=== PATIENT | female | born 1980 | race Caucasian/White ===

== ENCOUNTER 2020-12-25 15:25 | Emergency (ER) | payer BC, SELFPAY ==
--- NOTE | ~2020-12-25 | XR_ITS ---
EXAMINATION: XR hand RT min 3V INDICATION: Right hand pain TECHNIQUE: Three views of the right hand are obtained. COMPARISON: None available FINDINGS: There is no fracture, dislocation, or subluxation. The bones, soft tissues, and joint space s are normal. IMPRESSION: 1. No acute osseous abnormality. Reviewed, dictated and finalized at location A.
[2020-12-25 16:28] VITALS: BP 128/87; PULSE 86; RESP 14; TEMP 36.5; O2SAT 99
--- NOTE | 2020-12-25 19:51 | ED.GENADULT ---
HPI - General Adult General Chief complaint: Extremity Injury, Upper Stated complaint: finger injury Time Seen by Provider: 12/25/20 19:00 Source: patient Mode of arrival: ambulatory Limitations: no limitations History of Present Illness HPI narrative: Patient presents for evaluation of pain in the right hand since this morning. She indicates pain started when she got her finger caught on a dish while washing dishes. She states her current pain level is 8 on a scale of 1-10, with levels as high as 11 earlier today. Pain is constant, without descriptive quality. No loss of range of motion. Movement worsens her pain. No paresthesias. She has not taken any medication to assist with her symptoms. She is right-hand dominant. No additional complaints or concerns. Related Data Allergies Allergy/AdvReac Type Severity Reaction Status Date / Time procaine Allergy Unknown FACIAL Verified 02/09/17 21:14 SWELLING Novacaine Allergy Severe Facial Uncoded 04/18/07 20:22 swelling Review of Systems Review of Systems: CONSTITUTIONAL: Denies fever, chills, or sweats. EYES: Denies visual changes, redness, or discharge. ENT: Denies rhinorrhea, congestion, sore throat, or otalgia. CARDIOVASCULAR: Denies chest pain, palpitations, or edema. RESPIRATORY: Denies cough or dyspnea. GASTROINTESTINAL: Denies abdominal pain, nausea, vomiting, or diarrhea. GENITOURINARY: Denies dysuria or hematuria. SKIN: Denies rash or itching. MUSCULOSKELETAL: Reports pain in the fifth digit of the right hand. Denies back pain NEUROLOGIC: Denies headache, numbness, dizziness, or weakness. PSYCHIATRIC: Denies anxiety or depression. [facility] Past Medical History Medical History (Updated 12/25/20 @ 19:58 by FRANKLIN Colón, SARAH) No pertinent past medical history Surgical History Surgical History History of section History of foot surgery History of hysterectomy History of tonsillectomy History of tubal ligation Family History Family History Mother No pertinent past medical history Social History Social History Smoking status: Former smoker Tobacco type: cigarettes Alcohol intake: current Alcohol use details: Occasional social use Substance use: never Living arrangements: with friend(s) Gender identity (if verbalized by the patient): Female Spiritual care concerns: No Exam Narrative: GENERAL: Well-appearing, well-nourished, and in no acute distress. HEAD: Normocephalic, atraumatic. EYES: PERRLA and EOMI. ENT: Nares clear, no rhinorrhea or epistaxis. Mucous membranes moist. Oropharynx without tonsillar hypertrophy exudate or other lesions. Bilateral TMs pearly munson nonbulging NECK: Supple. No adenopathy or masses. No carotid bruits or JVD CHEST: Clear to auscultation. No respiratory distress. No wheezes rales or rhonchi HEART: Regular rate and rhythm. No murmur heard. Normal peripheral pulses. ABDOMEN: Soft, nontender, nondistended, normal active bowel sounds. EXTREMITIES: Tenderness in the DIP and distal phalanx of the fifth digit of the right hand. Normal range of motion. No edema. SKIN: Warm, dry, no rash. NEURO: No focal deficits. Alert and oriented x3. PSYCH: Normal mood and affect. Course Course Emergency Course: This is a 40-year-old female that presented with complaints of pain in the fifth digit of the right hand after she caught it on a dish while washing dishes. X ray was negative for fx. She declined pain medication in the department and upon discharge home. She was provided with a finger splint. Advised RICE therapy. Follow-up outpatient for further evaluation treatment and return for worsening symptoms. Patient agreed with plan of care. Vital Signs Vital signs: Vital Signs Temperature 36.5 C 12/25/20 16:
[2020-12-25 19:57] VITALS: BP 128/87; PULSE 86; RESP 14; TEMP 36.5; O2SAT 99
--- NOTE | 2020-12-25 20:06 | PC.NURSE ---
splint applied, erp reassessed and approved.
[2020-12-25 21:00] VITALS: BP 133/90; PULSE 97; RESP 18; O2SAT 99
== END 2020-12-25 21:01 | disposition home or self-care (01) ==
LOC: ANHED 20:14
PROVIDERS: Emergency Provider Nurse Practitioner; PCP Internal Medicine
DX: S66.116A Strain of flexor muscle, fascia and tendon of right little finger at wrist and hand level, initial encounter (principal); Z87.891 Personal history of nicotine dependence; X50.9XXA Other and unspecified overexertion or strenuous movements or postures, initial encounter
CPT/HCPCS: 29130; 73130; 99283

== ENCOUNTER 2021-06-30 11:16 | Emergency (ER) | payer BC, SELFPAY ==
--- NOTE | ~2021-06-30 | XR_ITS ---
EXAMINATION: XR chest 1V portable DATE: 06/30/2021 11:50 INDICATION: Cough TECHNIQUE: frontal view of the chest was obtained. COMPARISON: None FINDINGS: The lungs are clear with no focal airspace opacities, pulmonary edema, pleural effusion or pneumothor ax. The cardiomediastinal silhouette is normal. Visualized bones and soft tissues are unremarkable. IMPRESSION: 1. No acute cardiopulmonary disease. Reviewed, dictated and finalized at location B.
[2021-06-30 11:50] VITALS: BP 100/63; PULSE 77; RESP 22; TEMP 37.1; O2SAT 98
--- NOTE | 2021-06-30 12:38 | ED.SOB ---
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 Patient denies any fever, chills, nausea, vomiting or chest pain. Related Data Home Medications Medication Instructions Recorded Confirmed levothyroxine 175 mcg tablet 175 mcg PO DAILY 06/20/21 06/20/21 rosuvastatin 40 mg tablet 40 mg PO DAILY 06/20/21 06/20/21 Allergies Allergy/AdvReac Type Severity Reaction Status Date / Time procaine Allergy Unknown FACIAL Verified 06/30/21 11:58 SWELLING Novacaine Allergy Severe Facial Uncoded 06/30/21 11:58 swelling Review of Systems Review of Systems: CONSTITUTIONAL: Denies fever, chills, or sweats. EYES: Denies visual changes, redness, or discharge. ENT: Denies rhinorrhea, congestion, sore throat, or otalgia. CARDIOVASCULAR: Denies chest pain, palpitations, or edema. RESPIRATORY: Denies cough or dyspnea. GASTROINTESTINAL: Denies abdominal pain, nausea, vomiting, or diarrhea. GENITOURINARY: Denies dysuria or hematuria. SKIN: Denies rash or itching. MUSCULOSKELETAL: Denies back pain, joint pain, or myalgia. NEUROLOGIC: Denies headache, numbness, or weakness. PSYCHIATRIC: Denies anxiety or depression. [facility] Past Medical History Medical History Abnormal Pap smear of cervix 2008 lgsil/ 2010 ascus- hx of CHRISTOPHER 2 and hgsil and lgsil Arthritis Asthma Encounter for screening examination for sexually transmitted disease High cholesterol Hypothyroidism Incontinence of urine in female 11/29/10 TVT Nonalcoholic steatohepatitis (MAC) Surgical History Surgical History H/O LEEP 04/30/05 HGSIL CHRISTOPHER 2 History of section 03/25/04 primary c/s--narrow pelvic outlet, macrosomia 12/15/06 rpt c/s History of cystoscopy 11/29/10 cystoscopy w/transvaginal taping--incontinence History of dilation and curettage 08/30/10 hscope d&c--menorrhagia, dysmenorrhea--benign 08/08/11 hscope d&c--menometrorrhagia, dsymenorrhea--mild chronic endometritis History of foot surgery x2 lt heel lt arch History of left knee surgery x3 History of robot-assisted laparoscopic hysterectomy 09/18/11 RA TLH w/bilateral salpingectomy--lysis of adhesions--menorrhagia, dysmenorrhea History of tonsillectomy 05/27/19 History of tubal ligation 11/04/07 Hx laparoscopic cholecystectomy 05/25/14 Hx of endoscopy 04/25/16 Family History Family History Mother Hypertension Grandparent Diabetes mellitus maternal grandfather paternal grandmother Malignant neoplasm of lung maternal grandfather paternal grandmother Malignant neoplasm of brain paternal grandmother Other No pertinent past medical history Social History Social History Smoking status: Former smoker Tobacco type: cigarettes Smoking end date: 03/25/04 Alcohol intake: current Alcohol use details: Occasional social use Substance use: never Substance use type: does not use Additional living arrangements comments: 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
[2021-06-30 12:56] VITALS: BP 100/78; PULSE 81; RESP 18; O2SAT 98
== END 2021-06-30 13:01 | disposition home or self-care (01) ==
PROVIDERS: Emergency Provider Emergency Medicine; PCP Internal Medicine
DX: J06.9 Acute upper respiratory infection, unspecified (principal); J45.909 Unspecified asthma, uncomplicated; E78.00 Pure hypercholesterolemia, unspecified; E03.9 Hypothyroidism, unspecified; K75.81 Nonalcoholic steatohepatitis (NASH); M19.90 Unspecified osteoarthritis, unspecified site; Z87.891 Personal history of nicotine dependence
CPT/HCPCS: 71045; 99283

== ENCOUNTER → 2021-08-25 02:16 | Outpatient (CLI) | payer BC, SELFPAY ==
[2021-08-25 16:40] LABS: SARS-CoV-2 RNA PCR Negative
== END ==
PROVIDERS: PCP Internal Medicine; Visit Provider Internal Medicine
DX: R05.9 Cough, unspecified (principal); Z20.822 Contact with and (suspected) exposure to COVID-19
CPT/HCPCS: C9803; U0003; U0005

== ENCOUNTER 2024-11-26 13:50 | Outpatient (CLI) | payer OTHER, SELFPAY ==
--- NOTE | ~2024-11-26 | MR_ITS ---
EXAMINATION: MR knee LT wo con DATE: 11/26/2024 14:36 INDICATION: Left knee pain TECHNIQUE: Magnetic resonance imaging (MRI) of the left knee was performed without intravenous contrast. Sequences included coronal PD-weighted FSE, coronal PD-weighted FS FSE, sagittal T2-weighted FSE, sagittal PD-weighted FS FSE and axial PD weighted fat saturated FSE. COMPARISON: None. FINDINGS: Medial compartment: Medial meniscus is normal. Mild partial-thickness cartilage loss with smooth chondral surface along the anterior weightbearing medial femoral condyle. There is partial thickness chondral ulceration and fissuring along the lateral margin of the central weightbearing medial femoral condyle. There is a small deep chondral flap tear underlying a portion of the posterior weightbearing medial femoral condyle. Cartilage at the medial tibial plateau is normal. Lateral compartment: Lateral extrusion of the lateral meniscal body. Complex tear at the anterior body of the lateral meniscus. The anterior horn of the lateral meniscus is not visualized and is likely either torn with either secondary displacement or degeneration of the anterior horn tissue. Approximately 2 cm long crescentic low signal intensity flap of soft tissue is seen in the lateral gutter of the suprapatellar pouch cephalad to the expected location anterior horn of the lateral meniscus which is suspicious for displaced meniscal tissue. This is best appreciated on sagittal series 5, images 23-24. Deep chondral ulceration without degenerative subchondral changes at the anterior to central weightbearing lateral femoral condyle. Partial-thickness chondral ulceration along the medial side of the lateral tibial plateau along the shoulder the intercondylar eminence. Deep chondral fissuring also without degenerative subchondral changes at the central aspect of the lateral the tibial plateau. Patellofemoral compartment: Deep chondral ulceration and fissuring without degenerative subchondral changes at the trochlea. Patellar cartilage appears relatively preserved. Ligaments and tendons: Anterior and posterior cruciate ligaments are normal. The medial collateral ligament and fibular collateral ligament complex are normal. Postoperative change of realignment osteotomy with fixation screws at the anterior tibial tuberosity insertion of the distal patellar tendon. The extensor mechanism is otherwise normal. The visualized medial and lateral hamstring tendons as well as the iliotibial band are normal. Fluid: Moderate-sized right knee joint effusion. Large Bailey's cyst measuring 8.7 cm in proximal middle to distal length and 4.2 x 2.7 cm in maximal transaxial dimensions. Mild prepatellar edema. Osseous/other: Geographic regions of red marrow reexpansion in the metaphyseal and diaphyseal regions of the visualized distal femur and proximal tibia and fibula. No fracture or pathologic marrow replacing process. IMPRESSION: 1. Complex lateral meniscal tear with absent anterior horn and possible displaced meniscal fragment at the lateral gutter of the suprapatellar pouch. 2. 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 3. Postoperative change of prior realignment osteotomy at the anterior tibial tuberosity. 4. Moderate-sized right knee joint effusion and large Bailey's cyst. Reviewed, dictated and finalized at location A. IMPRESSION: 1. Complex lateral meniscal tear with absent anterior horn and possible displac ed meniscal fragment at the lateral gutter of the suprapatellar pouch. 2. Mild lateral and patellofemoral compartment predominant tricompartmental ost eoarthritis with regions of moderate grade chondromalacia in all 3 compartments . 3. Postoperative change of prior realignment osteotomy at the anterior tibial t uberosity. 4. Moderate-sized right knee joint effusion and large Bailey's cyst.
--- OUTSIDE RECORDS SUMMARY | 2024-11-26 14:06 | XMS_ITS | Clinical Summary ---
Author Organization [email or web address] Address [address] [place] [address] Care Team Providers Care Continuity Manager Name Role Phone Govind Martin MD Primary Care Provider Source Comments [email or web address],non-owned Affiliates and Associated Physician Practices is amultiple site organization consisting of ambulatory clinics and hospital sitesin [place], [place], [place] and [place]. This disclosure is being madepursuant to the Care Everywhere program and may not contain all information available regarding this patient. Last updated 17.[email or web address] Allergies Active Allergy Reactions Criticality Noted Date Comments Procaine Swelling 11/18/2017 Medications * Be aware that medications may not be up to date on this document. Alwaysverify current medications with the patient. vitamin D, ergocalciferol, (DRISDOL) 13011 UNITS capsule Take 1 (one) capsule by mouth every 7 days 8 Active metFORMIN ER 24hr (Glucophage XR) 500 MG tablet TAKE 1 TABLET BY MOUTH EVERY DAY AT DINNER 3 Active rosuvastatin (Crestor) 40 MG tablet Take 1 (one) tablet by mouth once daily Active levothyroxine (Synthroid) 125 MCG tablet Take 1 (one) tablet by mouth daily before breakfast Active Active Problems Problem Noted Date Diagnosed Date Hypothyroidism 11/18/2017 NAFLD (nonalcoholic fatty liver disease) 018 Overview (02/09/2019): 02/09/19 Fibroscan CAP 271, E 5.0 kPa Social History Tobacco Use Types Packs/Day Years Used Date Smoking Tobacco: Former Smokeless Tobacco: Never Alcohol Use Standard Drinks/Week Comments Yes 0 (1 standard drink = 0.6 oz pur e alcohol) Occasional 1-2 x/month Comments Unknown Sex and Gender Information Value Date Recorded Sex Assigned at Not on file Legal Sex Female 6:29 AM [employer] Gender Identity Not on file Sexual Orientation Not on file Last Filed Vital Signs Vital Sign Reading Time Taken Comments Blood Pressure 100/70 09/23/2023 12:32 PM CDT Pulse 79 09/23/2023 12:32 PM CDT Temperature 36.7 C (98.1 F) 04/18/2023 10:41 AM [employer] Respiratory Rate 18 04/18/2023 10:4 1 AM [employer] Oxygen Saturation 99% 09/23/2023 12: 32 PM CDT Inhaled Oxygen Concentration - - Weight 133.3 kg (293 lb 12.8 oz) 2023 12:32 PM CDT Height 152.4 cm (5') 02/09/2019 1:16 PM [employer] Body Mass Index 57.38 02/09/2019 1:16 PM [employer] Plan of Treatment Health Maintenance Due Date Last Done Comments MAMMOGRAM 1982 HIV SCREENING 1997 HEPATITIS C SCREENING 10/14/2000 DTAP/TDAP/TD VACCINES (1 - Tdap) 2001 HEPATITIS B VACCINE (1 of 3 - 19+ 3-dose series) 2001 HPV VACCINE (1 - 3-dose SCDM series) 2009 DEPRESSION SCREENING 03/25/2024 COVID-19 VACCINE (2 - season) 2024 07/02/2020 INFLUENZA VACCINE (#1) 2024 3, 03/07/2022, 12/24/2018, Additional history exists SCREENING FOR DIABETES 09/22/2026 4, 09/23/2023, 10/15/2022, Additional history exists ZOSTER VACCINE (1 of 2) 2032 HIB VACCINE Aged Out No longer eligi ble based on patient's age to complete this topic MENINGOCOCCAL (Group B) VACCINE SHARED DECISION-MAKING Aged Out No longer eligible based on patient's age to complete this topic MENINGOCOCCAL GROUPS A/C/Y/W VACCINE Aged Out No longer eligible based on patient's age to complete this topic PNEUMOCOCCAL VACCINE Aged Out No long er eligible based on patient's age to complete this topic Goals Goal Patient Goal Type Associated Problems Recent Progress Patient-Stated? Author Medication Management General On track( 024 10:47 AM [employer]) Sadie Clemens, RN Note: Expected end date: Ongoing Interventions: Procedures Procedure Name Priority Date/Time Associated Diagnosis Comments COMPREHENSIVE METABOLIC PANEL Routine 09/23/2023 1:27 PM CDT NAFLD (nonalcoholic fatty liver disease) from Last 3 Months or Most Recently Relevant to Health Maintenance Results * (ABNORMAL) COMPREHENSIVE METABOLIC PANEL (09/23/2023 1:27 PM CDT) BUN 11 7 - 26 mg/dL 09/23/2023 2:27 PM [facility] Creatinine 0.72 0.56 - 0.96 mg/dL 09/23/2023 2:27 PM [facility] Sodium 141 136 - 145 mmol/L 09/23/2023 2:27 PM [facility] Potassium 3.6 3.5 - 4.5 mmol/L 09/23/2023 2:27 PM [facility] Chloride 109(H) 98 - 107 mmol/L 09/23/2023 2:27 PM [facility] CO2 25 22 - 29 mmol/L 09/23/2023 2:27 PM [facility] Glucose 88 70 - 115 mg/dL 09/23/2023 2:27 PM [facility] Calcium 9.1 8.4 - 10.2 mg/dL 09/23/2023 2:27 PM [facility] Protein Total 7.7 6.0 - 8.3 g/dL 09/23/2023 2:27 PM [facility] Albumin 4.2 3.4 - 5.0 g/dL 09/23/2023 2:27 PM [facility] Bilirubin Total 0.8 0.2 - 1.2 mg/dL 09/23/2023 2:27 PM [facility] Alkaline Phosphatase 94 40 - 150 U/L 09/23/2023 2:27 PM [facility] ALT 35 5 - 55 U/L 09/23/2023 2:27 PM [facility] AST 31 5 - 34 U/L 09/23/2023 2:27 PM [facility] Anion Gap 7 6 - 16 09/23/2023 2:27 PM [facility] BUN/Creatinine Ratio 15 7 - 23 09/23/2023 2:27 PM [facility] Osmolality Calculated 291 275 - 295 mOsm/kg 09/23/2023 2:27 PM [facility] Albumin/Globulin Ratio 1.2 1.1 - 2.3 09/23/2023 2:27 PM [facility] eGFR by CKD-EPI >90 >=90 mL/min/1.7 3 m2 09/23/2023 2:27 PM [facility] Blood BLOOD SPECIMEN / Unknown Lab Venipuncture / Unknown 09/23/2023 1:27 PM CDT 09/23/2023 1:56 PM [facility] Beata Rodríguez ANTHROPOLOGY PROFESS[employer] LAB - CHEMISTRY ORD ERABLES Final Result [facility] [address] [place] [address], [facility] [phone] from Last 3 Months or Most Recently Relevant to Health Maintenance Insurance [facility] Care Teams Continuity Manager Relationship Specialty Start Date End Date Govind Martin MD [address] [id number] PCP - General 11/18/17
== END 2024-11-26 13:51 | disposition home or self-care (01) ==
LOC: CHSIMG 13:54
PROVIDERS: PCP Internal Medicine; Visit Provider Orthopaedic Surgery
DX: M25.562 Pain in left knee (principal); S83.272A Complex tear of lateral meniscus, current injury, left knee, initial encounter; M17.11 Unilateral primary osteoarthritis, right knee; M94.262 Chondromalacia, left knee; Z98.890 Other specified postprocedural states; M25.462 Effusion, left knee; M71.22 Synovial cyst of popliteal space [Baker], left knee
CPT/HCPCS: 73721